=== PATIENT | male | born 1955 | race Caucasian/White ===

== ENCOUNTER 2023-09-13 13:45 | Emergency (ER) | payer MEDICARE, OTHER ==
[2023-09-13] MEDS ORDERED: Amoxicillin/Potassium Clav 875 MG TAB ONE (14:21)
== END 2023-09-13 14:35 | disposition home or self-care (01) ==
LOC: BURERS 13:45
DX: S51.852A Open bite of left forearm, initial encounter (principal); S51.851A Open bite of right forearm, initial encounter; I10 Essential (primary) hypertension; W54.0XXA Bitten by dog, initial encounter
CPT/HCPCS: 99283